=== PATIENT | female | born 1985 | race Two or more races ===

== ENCOUNTER 2018-02-15 08:00 | Outpatient (CLI) | payer BC ==
[2018-02-15 11:11] LABS: HEMATOCRIT 38.1 % (36.0-48.0); HEMOGLOBIN 13.1 g/dL (12-16); MCHC 34.4 g/dL (31.0-37.0); MCV 90.3 fL (80.0-100.0); MEAN PLATELET VOLUME 10.4 fL (7.4-10.4); RBC 4.22 10x6/uL (4.00-5.40); RDW 12.3 % (11.5-14.5); WBC 7.4 10x3/uL (4.8-10.8)
[2018-03-04 08:20] VITALS: Wt 61.7 kg
== END 2018-02-15 08:01 | disposition home or self-care (01) ==
LOC: D.OPS 08:00 → D.PAN 02-18 09:55 → D.OPS 02-18 09:55 → EDSTATUS 02-18 09:55 → D.PAN 02-18 10:00 → D.OPS 02-18 11:15 → D.PAN 02-18 11:15
PROVIDERS: Anesthesiology
DX: K64.9 Unspecified hemorrhoids (principal); Z01.810 Encounter for preprocedural cardiovascular examination; Z01.811 Encounter for preprocedural respiratory examination; Z01.812 Encounter for preprocedural laboratory examination

== ENCOUNTER 2018-03-04 07:05 | Day surgery (SDC) | payer BC ==
[2018-03-01 10:16] LABS: HEMATOCRIT 37.6 % (36.0-48.0); HEMOGLOBIN 13.1 g/dL (12-16); MCH 30.5 pg (26.0-34.0); MCHC 34.8 g/dL (31.0-37.0); MCV 87.4 fL (80.0-100.0); MEAN PLATELET VOLUME 10.9 fL (7.4-10.4); RBC 4.3 10x6/uL (4.00-5.40); RDW 11.8 % (11.5-14.5); WBC 6.6 10x3/uL (4.8-10.8)
[~2018-03-04] VITALS: Ht 157.5 cm; Wt 61.7 kg
[2018-03-04 08:20] VITALS: BP 100/60; Ht 157.5 cm; Wt 61.7 kg
[2018-03-04 08:30] LABS: HCG URINE NEGATIVE (NEGATIVE)
[2018-03-04] MEDS ORDERED: VALIUM5 MG PO (10:27)
[2018-03-04] MEDS ORDERED: MIRALAX17 GM PO (10:27)
[2018-03-04] MEDS ORDERED: HYDROCODON-ACE1 EAC7 PO (10:27)
== END 2018-03-04 12:25 | disposition home or self-care (01) ==
LOC: D.OPS 07:05 → D.PAN 09:30 → D.OPS 12:25
PROVIDERS: Anesthesiology; Surgery
DX: K64.8 Other hemorrhoids (principal); D64.9 Anemia, unspecified

== ENCOUNTER 2018-12-06 23:12 | Emergency (ER) | payer MEDICAID ==
[~2018-12-06] VITALS: Ht 157.5 cm; Wt 61.4 kg
[~2018-12-06 23:12] MED LIST: HYDROCODON-ACE1 EAC7 PO; MIRALAX17 GM PO; VALIUM5 MG PO
[2018-12-06 23:45] VITALS: Ht 157.5 cm; Wt 61.4 kg
[2018-12-07 01:40] LABS: BASOPHILS 0.2 % (0-2); EOSINOPHILS 10.6 % (0-7); HEMATOCRIT 37.3 % (36.0-48.0); HEMOGLOBIN 13.2 g/dL (12-16); IMMATURE GRANULOCYTES 0.2 % (0-5); LYMPHOCYTES 28.1 % (15-50); MCH 31.5 pg (26.0-34.0); MCHC 35.4 g/dL (31.0-37.0); MEAN PLATELET VOLUME 11.2 fL (7.4-10.4); MONOCYTES 7.5 % (2-11); NEUTROPHILS 53.4 % (40-80); PLATELET COUNT 216 10x3/uL (130-400); RBC 4.19 10x6/uL (4.00-5.40); RDW 12.5 % (11.5-14.5); WBC 9.6 10x3/uL (4.8-10.8)
[2018-12-07 01:53] LABS: ALBUMIN 3.8 g/dL (3.4-5.0); ALKALINE PHOSPHATASE 90 U/L (46-116); ALT (SGPT) 49 U/L (10-68); BILIRUBIN - TOTAL 0.42 mg/dL (0.2-1.3); CALC OSMOLALITY 279 mosm/kg (275-300); CALCIUM 8.8 mg/dL (8.5-10.1); CARBON DIOXIDE 28.4 mmol/L (21.0-32.0); CHLORIDE - SERUM 102 mmol/L (98-107); CREATININE - SERUM 0.5 mg/dL (0.6-1.3); GLUCOSE 189 mg/dL (74-106); PROTEIN - SERUM 8.1 g/dL (6.4-8.2); SODIUM 138 mmol/L (136-145); UREA NITROGEN 10 mg/dL (7-18); eGFR NON AFRICAN AMERICAN > 90 mL/min (90-120)
[2018-12-07 01:55] LABS: APTT 29.6 SECONDS (22.8-39.4); PROTIME 12.7 SECONDS (11.6-15.0)
[2018-12-07 01:56] LABS: D-DIMER-QUANTITATIVE 0.38 ug/mLFEU (0.20-0.54)
[2018-12-07 02:06] LABS: CKMB 0.6 U/L (0.0-3.6); CREATINE KINASE 125 UL (21-215); MAGNESIUM - SERUM 2.2 mg/dL (1.8-2.4); TROPONIN-I < 0.017 ng/mL (0.000-0.060)
[2018-12-07] MEDS ORDERED: ZPAK PO (02:59)
[2018-12-07] MEDS ORDERED: ALBUTEROL SULF8.5 GM INH (02:59)
[2018-12-07 03:31] VITALS: BP 122/78
== END 2018-12-07 03:31 | disposition home or self-care (01) ==
LOC: D.ER 23:12
PROVIDERS: Family Medicine
DX: J40 Bronchitis, not specified as acute or chronic (principal); R73.9 Hyperglycemia, unspecified